=== PATIENT | female | born 2000 | race Caucasian/White ===

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

== ENCOUNTER 2019-04-19 20:47 | Inpatient (IN) | payer MEDICAID, OTHER ==
--- NOTE | 2019-04-19 21:07 | ER Document Report ---
ED General - General Chief Complaint: Overdose Stated Complaint: POSS OVERDOSE Time Seen by Provider: 04/19/19 21:06 Notes: 18-year-old female brought to the emergency department with a history of having taken 2 handful of her medications. Approximately 20 pills of a mixture of Saphris, Trileptal, Keppra, buspirone, Celexa, Seroquel l, and ibuprofen. She also took a bungee cord and tried to strangle herself. When asked when she tried to kill herself she states that she was "following the voices". She has a significant psychiatric history suicidal attempts, hallucinations, schizoaffective disorder, she also has a seizure disorder with petit mal seizures and grand mal tonic-clonic seizures. Apparently she has multiple superficial cuts on the left arm and a red jadiel around her neck from using a bungee cord as a ligature. TRAVEL OUTSIDE OF THE [place] IN LAST 30 DAYS: No - Related Data Allergies/Adverse Reactions: banana Allergy (Verified 04/19/19 21:01) albuterol [Albuterol] Adverse Reaction (Verified 09/09/11 08:26) AGGRESSIVE BEHAVIOR Home Medications: keppra, triliptal, saphris, buspar, sreaquel, ibuprofen, celexa Past Medical History - Social History Smoking Status: Never Smoker Frequency of alcohol use: None Drug Abuse: None Family History: Reviewed & Not Pertinent, Other - Depression, PTSD Patient has suicidal ideation: Yes Patient has homicidal ideation: No - Past Medical History Cardiac Medical History: Denies: Hx Heart Attack, Hx Hypertension Pulmonary Medical History: Denies: Hx Asthma Neurological Medical History: Denies: Hx Cerebrovascular Accident, Hx Seizures Renal/ Medical History: Denies: Hx Peritoneal Dialysis GI Medical History: Denies: Hx Hepatitis, Hx Hiatal Hernia, Hx Ulcer Psychiatric Medical History: Reports: Hx Anxiety, Hx Depression, Hx Post Traumatic Stress Disorder Infectious Medical History: Denies: Hx Hepatitis Past Surgical History: Denies: Hx Open Heart Surgery, Hx Pacemaker - Immunizations Immunizations up to date: Yes Review of Systems - Review of Systems Notes: Constitutional: Negative for fever. HENT: Negative for sore throat. Eyes: Negative for visual changes. Cardiovascular: Negative for chest pain. Respiratory: Negative for shortness of breath. Gastrointestinal: Negative for abdominal pain, vomiting or diarrhea. Genitourinary: Negative for dysuria. Musculoskeletal: Negative for back pain. Skin: + Multiple superficial cuts on the left arm Neurological: Negative for headaches, weakness or numbness. Psychiatric: + Auditory hallucinations, + suicidal ideation, 10 point ROS negative except as marked above and in HPI. Physical Exam - Vital signs Vitals: Resp Pulse Ox 22 H 97 04/19/19 20:56 04/19/19 20:56 - Notes Notes: PHYSICAL EXAMINATION: Physical Exam: General: Well-nourished well-developed 18-year-old female lying on a stretcher with her eyes closed HEENT: NC/AT, pupils equal round and reactive to light, MM moist,nares clear, oropharynx clear Neck: supple, no adenopathy, no masses. Lungs: clear, no wheezing, no rales no rhonchi CVS: Regular rate and rhythm no murmur gallop or rub Abdomen: Soft active nontender, no masses, no hepatosplenomegaly Ext: No edema clubbing or cyanosis. Neuro: Somnolent but arousable, moving all 4 extremities on command, cranial nerves intact. Skin: Multiple superficial lacerations on the left upper extremity. PSYCH: Auditory hallucinations, suicidal attempt, self-mutilation, depression Course - Re-evaluation Re-evalutation: 04/19/19 22:42 Poison control was contacted and recommends the patient be admitted to the hospital for 24-hour monitoring and evaluation of the overdose. Given the unknown quantity of multiple medications the risk for arrhythmia, QT prolongation and sedation will require close inpatient management. - Vital Signs Vital signs: Temp Pulse Resp BP Pulse Ox 97.4 F 115 H 13 106/61 96 04/19/19 21:18 04/19/19 21:01 04/19/19 23:01 04/19/19 23:01 04/19/19 23:01 - Laboratory Result Diagrams: 04/19/19 21:00 04/19/19 21:00 Laboratory results interpreted by me: 04/19/19 04/19/19 21:00 21:00 RDW 15.0 H Chloride 108 H Glucose 122 H Salicylates < 1.0 L Acetaminophen < 10 L - EKG Interpretation by Me Rate: Tachycardia - Rate of 114, no acute ST or T wave abnormalities noted. Critical Care Note - Critical Care Note Total time excluding time spent on procedures (mins): 60 - Critical care time spent obtaining history from patient or surrogate, discussions with consultants, development of treatment plan with patient or surrogate, evaluation of patient's response to treatment, examination of patient, ordering and performing treatments and interventions, ordering and review of laboratory studies, re- evaluation of patient's condition, ordering and review of radiographic studies and review of old charts Discharge - Discharge Clinical Impression: Drug ingestion, Self-inflicted injury, Suicide attempt, Seizure disorder Condition: Fair Disposition: ADMITTED INPATIENT Admitting Provider: Dhaval (Hospitalist) Unit Admitted: Telemetry
[2019-04-19 21:25] LABS: ABSOLUTE EOSINOPHILS # (AUTO) 0.2 10^3/uL (0.0-0.6); ABSOLUTE LYMPHOCYTES (AUTO) 2.5 10^3/uL (0.5-4.7); ABSOLUTE MONOCYTES (AUTO) 0.3 10^3/uL (0.1-1.4); ABSOLUTE NEUT (AUTO) 6.4 10^3/uL (1.7-8.2); BASOPHILS % (AUTO) 0.2 % (0-2); EOSINOPHILS % (AUTO) 1.8 % (0-6); HEMATOCRIT 38.8 % (36.0-47.0); LYMPHOCYTES % (AUTO) 26.8 % (13-45); MEAN CORPUSCULAR HEMOGLOBIN 28.5 pg (27.0-33.4); MEAN CORPUSCULAR HGB CONC 33.5 g/dL (32.0-36.0); MEAN CORPUSCULAR VOLUME 85 fl (80-97); MONOCYTES % (AUTO) 3.7 % (3-13); PLATELET COUNT 305 10^3/uL (150-450); RED BLOOD COUNT 4.55 10^6/uL (3.72-5.28); SEGMENTED NEUTROPHILS % (AUTO) 67.5 % (42-78); TOTAL CELLS COUNTED % (AUTO) 100 %; WHITE BLOOD COUNT 9.5 10^3/uL (4.0-10.5)
[2019-04-19 21:43] LABS: ALBUMIN 3.8 g/dL (3.5-5.0); ALKALINE PHOSPHATASE 125 U/L (38-126); ANION GAP 8 (5-19); ASPARTATE AMINO TRANSFERASE 19 U/L (14-36); BILIRUBIN,TOTAL 0.2 mg/dL (0.2-1.3); BLOOD UREA NITROGEN 11 mg/dL (7-20); CALCIUM 9.4 mg/dL (8.4-10.2); CARBON DIOXIDE 25 mmol/L (22-30); CHLORIDE 108 mmol/L (98-107); GLUCOSE 122 mg/dL (75-110); POTASSIUM 4.3 mmol/L (3.6-5.0); TOTAL PROTEIN 7.2 g/dL (6.3-8.2)
[2019-04-19 21:47] LABS: ACETAMINOPHEN < 10 ug/mL (10-30); ALCOHOL < 10 mg/dL (NONE DETECTED); SALICYLATE < 1.0 mg/dL (2.0-20.0)
[2019-04-19 23:01] LABS: APPEARANCE,URINE CLEAR; BILIRUBIN,URINE NEGATIVE (NEGATIVE); COLOR,URINE STRAW; GLUCOSE, URINE NEGATIVE (NEGATIVE); KETONES,URINE NEGATIVE (NEGATIVE); LEUKOCYTE ESTERASE,URINE NEGATIVE (NEGATIVE); NITRITE,URINE NEGATIVE (NEGATIVE); PROTEIN,URINE NEGATIVE (NEGATIVE); URINE SPECIFIC GRAVITY 1.009; UROBILINOGEN,URINE NEGATIVE mg/dL (<2.0)
[2019-04-19 23:19] LABS: URINE AMPHETAMINES SCREEN NEGATIVE; URINE BARBITURATES SCREEN NEGATIVE; URINE BENZODIAZEPINES SCREEN NEGATIVE; URINE COCAINE SCREEN NEGATIVE; URINE MARIJUANA (THC) SCREEN NEGATIVE; URINE METHADONE SCREEN NEGATIVE; URINE PHENCYCLIDINE SCREEN NEGATIVE
[2019-04-20] MEDS ORDERED: MAG HYDROX/AL HYDROX/SIMETH SUSP 30 ML UDCUP PO PRN (00:28)
[2019-04-20] MEDS ORDERED: MAGNESIUM HYDROXIDE SUSP 30 ML UDCUP PO PRN (00:28)
[2019-04-20] MEDS ORDERED: ACETAMINOPHEN 325 MG TABLET PO PRN (00:28)
--- NOTE | 2019-04-20 04:35 | PDOC H&P ---
History of Present Illness Admission Date/PCP: 04/20/19 00:11 INDRA SMALL MD Patient complains of: Overdose History of Present Illness: DORON JOSEPH is a 18 year old female whose history is obtained by the record as she is uncooperative. Patient reportedly took 2 handfuls of medications which may have include Saphris, Trileptal, Keppra, BuSpar, Celexa, Seroquel and ibuprofen. In addition patient has attempted hanging with with a bungee cord and ligation bruising is apparent on the neck laterally. She has several superficial lacerations to her left forearm. She reports following the directions of voices in her head. She does have a history of suicidal attempts, hallucinations, schizoaffective and seizure disorder and morbid obesity. Emergency room provider has initiated IVC papers and contacted poison control recommending 24 hours of cardiac monitoring of QT interval and follow-up LFTs. Past Medical History Cardiac Medical History: Denies: Myocardial Infarction, Hypertension Pulmonary Medical History: Denies: Asthma Neurological Medical History: Denies: Seizures Endocrine Medical History: Reports: Obesity GI Medical History: Denies: Hepatitis, Hiatal Hernia Psychiatric Medical History: Reports: Depression, Post Traumatic Stress Disorder Hematology: Denies: Anemia, Sickle Cell Disease Past Surgical History Past Surgical History: Denies: Amputation, Pacemaker Social History Information Source: [facility], LAT[facility] Records Smoking Status: Never Smoker - Advance Directive Resuscitation Status: Full Code Family History Family History: Other - Depression, PTSD Parental Family History Reviewed: No - Unobtainable Children Family History Reviewed: No - Unobtainable Sibling(s) Family History Reviewed.: No - Unobtainable Medication/Allergy Home Medications: Divalproex Sodium [Depakote] 125 mg PO DAILY 05/13/16 Oxcarbazepine [Trileptal] 600 mg PO BID 05/13/16 Prazosin HCl [Minipress] 2 mg PO QHS 05/13/16 Allergies/Adverse Reactions: banana Allergy (Verified 04/19/19 21:01) albuterol [Albuterol] Adverse Reaction (Verified 09/09/11 08:26) AGGRESSIVE BEHAVIOR Review of Systems ROS unobtainable: Due to mental status Physical Exam Vital Signs: Temp Pulse Resp BP Pulse Ox 97.6 F 115 H 15 101/61 96 04/20/19 00:31 04/19/19 21:01 04/20/19 00:01 04/20/19 00:01 04/20/19 00:01 Intake & Output 04/18/19 04/19/19 04/20/19 11:59 11:59 11:59 Weight 106.594 kg General appearance: PRESENT: disheveled, morbidly obese. ABSENT: cooperative Head exam: PRESENT: atraumatic, normocephalic Head Image: 1 - Abrasion, ecchymosis from ligature Eye exam: PRESENT: conjunctiva pink, EOMI, PERRLA. ABSENT: scleral icterus Ear exam: PRESENT: normal external ear exam Mouth exam: PRESENT: moist, tongue midline Neck exam: ABSENT: carotid bruit, JVD, lymphadenopathy, thyromegaly Respiratory exam: PRESENT: clear to auscultation [place]. ABSENT: rales, rhonchi, wheezes Cardiovascular exam: PRESENT: RRR. ABSENT: diastolic murmur, rubs, systolic murmur Pulses: PRESENT: normal dorsalis pedis pul Vascular exam: PRESENT: normal capillary refill GI/Abdominal exam: PRESENT: normal bowel sounds, soft. ABSENT: distended, guarding, mass, organolmegaly, rebound, tenderness Rectal exam: PRESENT: deferred Extremities exam: PRESENT: full ROM. ABSENT: calf tenderness, clubbing, pedal edema Neurological exam: PRESENT: alert, awake, oriented to person, oriented to place, oriented to time, oriented to situation, CN II-XII grossly intact. ABSENT: motor sensory deficit Psychiatric exam: PRESENT: flat affect, unusual affect Skin exam: PRESENT: other - Superficial laceration of left forearm Results Laboratory Results: 04/19/19 21:00 04/19/19 21:00 04/19/19 04/19/19 04/19/19 21:00 21:00 21:00 WBC 9.5 RBC 4.55 Hgb 13.0 Hct 38.8 MCV 85 MCH 28.5 MCHC 33.5 RDW 15.0 H Plt Count 305 Seg Neutrophils % 67.5 Sodium 141.2 Potassium 4.3 Chloride 108 H Carbon Dioxide 25 Anion Gap 8 BUN 11 Creatinine 0.64 Est GFR ( Amer) > 60 Glucose 122 H Calcium 9.4 Magnesium 2.1 Total Bilirubin 0.2 AST 19 Alkaline Phosphatase 125 Total Protein 7.2 Albumin 3.8 TSH Urine Color Urine Appearance Urine pH Ur Specific [place] Urine Protein Urine Glucose (UA) Urine Ketones Urine Blood Urine Nitrite Ur Leukocyte Esterase Urine WBC (Auto) Urine RBC (Auto) 04/19/19 04/19/19 21:00 22:45 WBC RBC Hgb Hct MCV MCH MCHC RDW Plt Count Seg Neutrophils % Sodium Potassium Chloride Carbon Dioxide Anion Gap BUN Creatinine Est GFR ( Amer) Glucose Calcium Magnesium Total Bilirubin AST Alkaline Phosphatase Total Protein Albumin TSH 1.64 Urine Color STRAW Urine Appearance CLEAR Urine pH 6.0 Ur Specific [place] 1.009 Urine Protein NEGATIVE Urine Glucose (UA) NEGATIVE Urine Ketones NEGATIVE Urine Blood NEGATIVE Urine Nitrite NEGATIVE Ur Leukocyte Esterase NEGATIVE Urine WBC (Auto) 1 Urine RBC (Auto) 0 Assessment and Plan - Diagnosis (1) Drug ingestion Is this a current diagnosis for this admission?: Yes Plan: Intentional, telemetry monitoring of QT interval, follow-up LFTs and mental health consult (2) Seizure disorder Is this a current diagnosis for this admission?: Yes Plan: IV Ativan as needed (3) Self-inflicted injury Is this a current diagnosis for this admission?: Yes Plan: Follow-up mental health consult and suicide precautions. (4) Suicide attempt Is this a current diagnosis for this admission?: Yes Plan: Suicide precautions and IVC with mental health follow-up - Time Time Spent with patient: 25-34 minutes - Inpatient Certification Medical Necessity: Need Close Monitoring Due to Risk of Patient Decompensation
[2019-04-20] MEDS: HEPARIN SOD (PORCINE) 5,000 UNIT/ML 1 ML VIAL SUBCUT SCH ×3 (05:49→21:02)
[2019-04-20 06:39] LABS: ALBUMIN 4.1 g/dL (3.5-5.0); ALKALINE PHOSPHATASE 126 U/L (38-126); ANION GAP 10 (5-19); ASPARTATE AMINO TRANSFERASE 22 U/L (14-36); BILIRUBIN,DIRECT 0.3 mg/dL (0.0-0.4); BILIRUBIN,TOTAL 0.4 mg/dL (0.2-1.3); BLOOD UREA NITROGEN 11 mg/dL (7-20); CALCIUM 9.3 mg/dL (8.4-10.2); CARBON DIOXIDE 27 mmol/L (22-30); CHLORIDE 109 mmol/L (98-107); GLUCOSE 96 mg/dL (75-110); POTASSIUM 4.3 mmol/L (3.6-5.0); TOTAL PROTEIN 8.1 g/dL (6.3-8.2)
[2019-04-20] MEDS: DOCUSATE SODIUM 100 MG CAPSULE PO SCH ×2 (09:36→19:39)
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
--- NOTE | 2019-04-20 14:54 | EKG REPORT ---
SEVERITY:- OTHERWISE NORMAL ECG - SINUS TACHYCARDIA : Confirmed by: Carito Boswell MD 20-Apr-2019 14:52:41
--- NOTE | 2019-04-20 14:54 | EKG REPORT ---
SEVERITY:- NORMAL ECG - SINUS RHYTHM : Confirmed by: Carito Boswell MD 20-Apr-2019 14:52:38
[2019-04-21] MEDS ORDERED: LEVETIRACETAM 1000 MG/NACL-ISO 1,000 MG/100 ML RTUPB IV ONE ×2 (03:27→04:00)
[2019-04-21] MEDS: HEPARIN SOD (PORCINE) 5,000 UNIT/ML 1 ML VIAL SUBCUT SCH ×3 (05:01→21:29)
[2019-04-21] MEDS: DIVALPROEX SODIUM 500 MG TAB.SR.24H PO SCH ×2 (09:42→17:55)
[2019-04-21] MEDS: DOCUSATE SODIUM 100 MG CAPSULE PO SCH ×2 (09:42→17:55)
--- NOTE | 2019-04-21 12:41 | PSYCHOLOGICAL NOTE ---
Psych Note - Psych Note Date seen by psych provider: 04/21/19 Psych Note: Reason for Consult: overdose Chart review conducted: there have been no new mental health concerns noted. Patient was noted to experience a seizure this morning. Medication recommendations per [facility]'s contracted psychiatrist Dr. Vishal QUIGLEY are as follows Depakote 500 mg twice daily Impression\plan: Patient is recommended for continued IVC. Patient attempted to kill herself last night by both intentional overdose and attempted strangulation. Patient has return brennan i.e. bruising on her neck. Patient discloses a history of cutting as a maladaptive coping skill and confirms the superficial cuts on the top of her forearm are from coping not an attempt. There is concern the patient has been off all medications for 2 weeks to include her medication for epilepsy. Patient reports frequent auditory hallucinations. Her reports are congruent with known manifestations. Medication recommendations have been provided to assist in stabilization. Patient is not medically cleared at this point. Placement efforts cannot begin until she no longer needs medical assistance/interventions to maintain stability. Dr. Sousa was consulted to care management of this patient; attending physicians in agreement with recommendations and disposition.
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
--- NOTE | 2019-04-21 21:26 | EKG REPORT ---
SEVERITY:- NORMAL ECG - SINUS RHYTHM : Confirmed by: Carito Boswell MD 21-Apr-2019 21:24:59
[2019-04-21] MEDS ORDERED: LEVETIRACETAM 500 MG TABLET PO SCH (22:00)
[2019-04-22] MEDS: HEPARIN SOD (PORCINE) 5,000 UNIT/ML 1 ML VIAL SUBCUT SCH (05:06)
[2019-04-22] MEDS ORDERED: LEVETIRACETAM 500 MG TABLET PO SCH (08:00)
--- NOTE | 2019-04-22 08:33 | PSYCHOLOGICAL NOTE ---
Psych Note - Psych Note Date seen by psych provider: 04/22/19 Time seen by psych provider: 08:50 Psych Note: Chart review conducted: Clinician notes patient's attending physician documented last night patient is now medically cleared for psychiatric disposition. Clinician fax patient's information to [facility], and [facility] at 7:49 AM Clinician received phone call at 8:15 AM from [facility] and spoke with RN, Marta, whom formally accepted patient. Accepting provider is Luna Rossi. [facility] request transportation to occur after medication past this morning at 10 AM. Clinician will coordinate with [facility] for transportation. Check in conducted with patient: Clinician met with patient to discuss acceptance to [facility] and provide pamphlet for their facility. Clinician was able to answer all patient's questions satisfactorily. Clinician notes conversation went significantly better than previous day with patient identifying that she feels this facility will meet her needs. Impression/Plan: Patient is recommended to continue under IVC. Patient has been accepted to [facility] and transportation has been requested. Dr. Sousa was consulted to care management of this patient; any physicians in agreement with recommendations and disposition.
[2019-04-22 08:56] VITALS: BP 128/77
[2019-04-22] MEDS: DIVALPROEX SODIUM 500 MG TAB.SR.24H PO SCH (09:59)
[2019-04-22] MEDS: DOCUSATE SODIUM 100 MG CAPSULE PO SCH (09:59)
--- NOTE | 2019-04-22 13:44 | PDOC DISCHARGE SUMMARY ---
Impression - Admit/DC Date/PCP Admission Date/Primary Care Provider: 04/20/19 00:11 INDRA SMALL MD Discharge Date: 04/22/19 - Discharge Diagnosis (1) Seizure disorder Is this a current diagnosis for this admission?: Yes (2) Suicide attempt Is this a current diagnosis for this admission?: Yes - Additional Information Resuscitation Status: Full Code Discharge Diet: Regular Discharge Activity: Supervised Activity Referrals: PSYCH,HOSPITAL [Other] Home Medications: Oxcarbazepine [Trileptal] 600 mg PO QID 05/13/16 Buspirone HCl [Buspar 10 mg Tablet] 10 mg PO TID 04/20/19 Citalopram Hydrobromide [Celexa] 40 mg PO DAILY 04/20/19 Levetiracetam [Keppra 500 mg Tablet] 1,000 mg PO QHS 04/20/19 Levetiracetam [Keppra 500 mg Tablet] 500 mg PO QAM 04/20/19 Quetiapine Fumarate [Seroquel 100 mg Tablet] 100 mg PO QHS 04/20/19 History of Present Illiness History of Present Illness: DORON JOSEPH is a 18 year old female whose history is obtained by the record as she is uncooperative. Patient reportedly took 2 handfuls of medications which may have include Saphris, Trileptal, Keppra, BuSpar, Celexa, Seroquel and ibuprofen. In addition patient has attempted hanging with with a bungee cord and ligation bruising is apparent on the neck laterally. She has several superficial lacerations to her left forearm. She reports following the directions of voices in her head. She does have a history of suicidal attempts, hallucinations, schizoaffective and seizure disorder and morbid obesity. Emergency room provider has initiated IVC papers and contacted poison control recommending 24 hours of cardiac monitoring of QT interval and follow-up LFTs. Hospital Course Hospital Course: She was monitored on telemetry and showed no QTC prolongation or QRS interval widening. She showed no evidence of organ dysfunction. Her medications were held because it was not entirely certain which medication she had actually overdosed on, and she did have one episode that was called a seizure yesterday morning but she was put back on Keppra and has not had any subsequent episodes. Her Trileptal has been switched out psychiatry's recommendation in favor of Depakote. She was medically cleared and psychiatry has found placement for her. She is being transferred to inpatient psychiatry today. Physical Exam Vital Signs: Temp Pulse Resp BP Pulse Ox 97.9 F 88 16 128/77 H 100 04/22/19 07:53 04/22/19 07:53 04/22/19 07:53 04/22/19 07:53 04/22/19 07:53 Intake & Output 04/21/19 04/22/19 04/23/19 06:59 06:59 06:59 Intake Total 454 1276 Balance 454 1276 Weight 112.7 kg 110.5 kg General appearance: PRESENT: no acute distress, cooperative, disheveled, morbidly obese Neck exam: PRESENT: other - She has bruising from ligature brennan around her neck Respiratory exam: PRESENT: clear to auscultation jersey, symmetrical, unlabored. ABSENT: accessory muscle use, crackles, prolonged expiratory phas, rales, retraction, rhonchi, tachypnea, wheezes Cardiovascular exam: PRESENT: +S1, +S2 Pulses: PRESENT: normal carotid pulses Vascular exam: PRESENT: normal capillary refill GI/Abdominal exam: PRESENT: normal bowel sounds, soft. ABSENT: distended, guarding, rebound, tenderness Extremities exam: ABSENT: clubbing, pedal edema Musculoskeletal exam: PRESENT: normal inspection. ABSENT: deformity Neurological exam: PRESENT: alert, awake, oriented to person, oriented to place, oriented to time Psychiatric exam: PRESENT: agitated, anxious Skin exam: PRESENT: dry, warm Results Laboratory Results: WBC 9.5 10^3/uL (4.0-10.5) 04/19/19 21:00 RBC 4.55 10^6/uL (3.72-5.28) 04/19/19 21:00 Hgb 13.0 g/dL (12.0-15.5) 04/19/19 21:00 Hct 38.8 % (36.0-47.0) 04/19/19 21:00 MCV 85 fl (80-97) 04/19/19 21:00 MCH 28.5 pg (27.0-33.4) 04/19/19 21:00 MCHC 33.5 g/dL (32.0-36.0) 04/19/19 21:00 RDW 15.0 % (11.5-14.0) H 04/19/19 21:00 Plt Count 305 10^3/uL (150-450) 04/19/19 21:00 Lymph % (Auto) 26.8 % (13-45) 04/19/19 21:00 [place] % (Auto) 3.7 % (3-13) 04/19/19 21:00 Eos % (Auto) 1.8 % (0-6) 04/19/19 21:00 Baso % (Auto) 0.2 % (0-2) 04/19/19 21:00 Absolute Neuts (auto) 6.4 10^3/uL (1.7-8.2) 04/19/19 21:00 Absolute Lymphs (auto) 2.5 10^3/uL (0.5-4.7) 04/19/19 21:00 Absolute Monos (auto) 0.3 10^3/uL (0.1-1.4) 04/19/19 21:00 Absolute Eos (auto) 0.2 10^3/uL (0.0-0.6) 04/19/19 21:00 Absolute Basos (auto) 0.0 10^3/uL (0.0-0.2) 04/19/19 21:00 Seg Neutrophils % 67.5 % (42-78) 04/19/19 21:00 Sodium 146.0 mmol/L (137-145) H 04/20/19 06:01 Potassium 4.3 mmol/L (3.6-5.0) 04/20/19 06:01 Chloride 109 mmol/L (98-107) H 04/20/19 06:01 Carbon Dioxide 27 mmol/L (22-30) 04/20/19 06:01 Anion Gap 10 (5-19) 04/20/19 06:01 BUN 11 mg/dL (7-20) 04/20/19 06:01 Creatinine 0.57 mg/dL (0.52-1.25) 04/20/19 06:01 Est GFR ( Amer) > 60 (>60) 04/20/19 06:01 Est GFR (MDRD) Non-Af > 60 (>60) 04/20/19 06:01 Glucose 96 mg/dL (75-110) 04/20/19 06:01 Calcium 9.3 mg/dL (8.4-10.2) 04/20/19 06:01 Magnesium 2.1 mg/dL (1.6-2.3) 04/19/19 21:00 Total Bilirubin 0.4 mg/dL (0.2-1.3) 04/20/19 06:01 Direct Bilirubin 0.3 mg/dL (0.0-0.4) 04/20/19 06:01 Neonat Total Bilirubin Not Reportable 04/20/19 06:01 Neonat Direct Bilirubin Not Reportable 04/20/19 06:01 Neonat Indirect Bili Not Reportable 04/20/19 06:01 AST 22 U/L (14-36) 04/20/19 06:01 ALT 17 U/L (<35) 04/20/19 06:01 Alkaline Phosphatase 126 U/L (38-126) 04/20/19 06:01 Total Protein 8.1 g/dL (6.3-8.2) 04/20/19 06:01 Albumin 4.1 g/dL (3.5-5.0) 04/20/19 06:01 TSH 1.64 uIU/mL (0.47-4.68) 04/19/19 21:00 Urine Color STRAW 04/19/19 22:45 Urine Appearance CLEAR 04/19/19 22:45 Urine pH 6.0 (5.0-9.0) 04/19/19 22:45 Ur Specific [place] 1.009 04/19/19 22:45 Urine Protein NEGATIVE mg/dL (NEGATIVE) 04/19/19 22:45 Urine Glucose (UA) NEGATIVE mg/dL (NEGATIVE) 04/19/19 22:45 Urine Ketones NEGATIVE mg/dL (NEGATIVE) 04/19/19 22:45 Urine Blood NEGATIVE (NEGATIVE) 04/19/19 22:45 Urine Nitrite NEGATIVE (NEGATIVE) 04/19/19 22:45 Urine Bilirubin NEGATIVE (NEGATIVE) 04/19/19 22:45 Urine Urobilinogen NEGATIVE mg/dL (<2.0) 04/19/19 22:45 Ur Leukocyte Esterase NEGATIVE (NEGATIVE) 04/19/19 22:45 Urine WBC (Auto) 1 /HPF 04/19/19 22:45 Urine RBC (Auto) 0 /HPF 04/19/19 22:45 Squamous Epi Cells Auto 3 /HPF 04/19/19 22:45 Urine Ascorbic Acid NEGATIVE (NEGATIVE) 04/19/19 22:45 Salicylates < 1.0 mg/dL (2.0-20.0) L 04/19/19 21:00 Urine Opiates Screen NEGATIVE 04/19/19 22:45 Urine Methadone Screen NEGATIVE 04/19/19 22:45 Acetaminophen < 10 ug/mL (10-30) L 04/19/19 21:00 Ur Barbiturates Screen NEGATIVE 04/19/19 22:45 Ur Phencyclidine Scrn NEGATIVE 04/19/19 22:45 Ur Amphetamines Screen NEGATIVE 04/19/19 22:45 U Benzodiazepines Scrn NEGATIVE 04/19/19 22:45 Urine Cocaine Screen NEGATIVE 04/19/19 22:45 U Marijuana (THC) Screen NEGATIVE 04/19/19 22:45 Serum Alcohol < 10 mg/dL (NONE DETECTED) 04/19/19 21:00 Plan Time Spent: Greater than 30 Minutes Stroke Is this a Stroke Patient?: No Acute Heart Failure - Is this a Heart Failure Patient?: No
== END 2019-04-22 11:15 | DRG 918 ==
LOC: ER 20:47 → EH 04-20 00:11 → 4N 04-20 14:50
PROVIDERS: ADMIT Internal Medicine; ATTEND Internal Medicine
DX: T42.1X2A Poisoning by iminostilbenes, intentional self-harm, initial encounter (principal); Z68.42 Body mass index [BMI] 45.0-49.9, adult; T43.592A Poisoning by other antipsychotics and neuroleptics, intentional self-harm, initial encounter; T43.222A Poisoning by selective serotonin reuptake inhibitors, intentional self-harm, initial encounter; S51.812A Laceration without foreign body of left forearm, initial encounter; S10.91XA Abrasion of unspecified part of neck, initial encounter; R41.82 Altered mental status, unspecified; I45.81 Long QT syndrome; F32.9 Major depressive disorder, single episode, unspecified; F43.10 Post-traumatic stress disorder, unspecified; G40.909 Epilepsy, unspecified, not intractable, without status epilepticus; E66.01 Morbid (severe) obesity due to excess calories; X83.8XXA Intentional self-harm by other specified means, initial encounter; Y92.091 Bathroom in other non-institutional residence as the place of occurrence of the external cause; Y93.89 Activity, other specified
CPT/HCPCS: 36415; 80053; 80307; 81001; 83735; 84443; 85025; 93005; 93010; 99291; J1644; J1953

== ENCOUNTER 2019-04-23 23:49 | Emergency (ER) | payer MEDICAID ==
--- NOTE | 2019-04-24 00:06 | ER Document Report ---
ED Medical Screen (RME) - General Stated Complaint: POSSIBLE SEIZURE/FALL Time Seen by Provider: 04/24/19 00:05 Primary Care Provider: INDRA SMALL MD [Primary Care Provider] - Follow up as needed Notes: 18-year-old female with history of epilepsy presents for evaluation after seizure. Patient states she is on Keppra, Trileptal, and was recently started on gabapentin for seizures. Patient states she had a seizure yesterday as well. Patient was sent over from [place] for evaluation. Patient denies any pain anywhere or nausea/vomiting. Patient is nontoxic, well-appearing. Patient ambulates without difficulty. I have greeted and performed a rapid initial assessment of this patient. A comprehensive ED assessment and evaluation of the patient, analysis of test results and completion of the medical decision making process with be conducted by additional ED providers. TRAVEL OUTSIDE OF THE [place] IN LAST 30 DAYS: No - Related Data Allergies/Adverse Reactions: banana Allergy (Verified 04/23/19 23:58) Past Medical History - Past Medical History Cardiac Medical History: Denies: Hx Heart Attack, Hx Hypertension Pulmonary Medical History: Denies: Hx Asthma Neurological Medical History: Denies: Hx Cerebrovascular Accident, Hx Seizures Renal/ Medical History: Denies: Hx Peritoneal Dialysis GI Medical History: Denies: Hx Hepatitis, Hx Hiatal Hernia, Hx Ulcer Psychiatric Medical History: Reports: Hx Anxiety, Hx Depression, Hx Post Traumatic Stress Disorder Infectious Medical History: Denies: Hx Hepatitis Past Surgical History: Denies: Hx Open Heart Surgery, Hx Pacemaker - Immunizations Immunizations up to date: Yes Physical Exam - Vital signs Vitals: Temp Pulse Resp BP Pulse Ox 98.6 F 130 H 16 138/98 H 97 04/23/19 23:57 04/23/19 23:57 04/23/19 23:57 04/23/19 23:57 04/23/19 23:57 Course - Vital Signs Vital signs: Temp Pulse Resp BP Pulse Ox 98.6 F 130 H 16 138/98 H 97 04/23/19 23:57 04/23/19 23:57 04/23/19 23:57 04/23/19 23:57 04/23/19 23:57 Doctor's Discharge - Discharge Referrals: INDRA SMALL MD [Primary Care Provider] - Follow up as needed
[2019-04-24 00:31] LABS: ABSOLUTE BASOPHILS # (AUTO) 0.1 10^3/uL (0.0-0.2); ABSOLUTE EOSINOPHILS # (AUTO) 0.2 10^3/uL (0.0-0.6); ABSOLUTE LYMPHOCYTES (AUTO) 3.4 10^3/uL (0.5-4.7); ABSOLUTE MONOCYTES (AUTO) 0.5 10^3/uL (0.1-1.4); BASOPHILS % (AUTO) 0.7 % (0-2); EOSINOPHILS % (AUTO) 1.5 % (0-6); HEMATOCRIT 39.8 % (36.0-47.0); HEMOGLOBIN 13.5 g/dL (12.0-15.5); LYMPHOCYTES % (AUTO) 27.9 % (13-45); MEAN CORPUSCULAR HEMOGLOBIN 28.4 pg (27.0-33.4); MEAN CORPUSCULAR HGB CONC 33.8 g/dL (32.0-36.0); MEAN CORPUSCULAR VOLUME 84 fl (80-97); MONOCYTES % (AUTO) 4.2 % (3-13); PLATELET COUNT 338 10^3/uL (150-450); RED BLOOD COUNT 4.73 10^6/uL (3.72-5.28); RED CELL DISTRIBUTION WIDTH 14.8 % (11.5-14.0); SEGMENTED NEUTROPHILS % (AUTO) 65.7 % (42-78); TOTAL CELLS COUNTED % (AUTO) 100 %; WHITE BLOOD COUNT 12.1 10^3/uL (4.0-10.5)
[2019-04-24 00:44] LABS: APPEARANCE,URINE CLEAR; BILIRUBIN,URINE NEGATIVE (NEGATIVE); COLOR,URINE YELLOW; GLUCOSE, URINE NEGATIVE (NEGATIVE); KETONES,URINE 20 mg/dL (NEGATIVE); PROTEIN,URINE NEGATIVE (NEGATIVE); URINE SPECIFIC GRAVITY 1.023; UROBILINOGEN,URINE NEGATIVE mg/dL (<2.0)
[2019-04-24 00:51] LABS: ALBUMIN 4.5 g/dL (3.5-5.0); ALKALINE PHOSPHATASE 161 U/L (38-126); ANION GAP 11 (5-19); ASPARTATE AMINO TRANSFERASE 18 U/L (14-36); BILIRUBIN,TOTAL 0.4 mg/dL (0.2-1.3); BLOOD UREA NITROGEN 13 mg/dL (7-20); CALCIUM 9.4 mg/dL (8.4-10.2); CARBON DIOXIDE 26 mmol/L (22-30); CHLORIDE 106 mmol/L (98-107); GLUCOSE 93 mg/dL (75-110); POTASSIUM 4.4 mmol/L (3.6-5.0); TOTAL PROTEIN 8.6 g/dL (6.3-8.2)
[2019-04-24 01:34] LABS: URINE AMPHETAMINES SCREEN NEGATIVE; URINE BARBITURATES SCREEN NEGATIVE; URINE BENZODIAZEPINES SCREEN NEGATIVE; URINE COCAINE SCREEN NEGATIVE; URINE MARIJUANA (THC) SCREEN NEGATIVE; URINE METHADONE SCREEN NEGATIVE; URINE PHENCYCLIDINE SCREEN NEGATIVE
[2019-04-24] MEDS ORDERED: NORMAL SALINE 1000 ML 1,000 ML IV ONE ×2 (02:32→05:27)
[2019-04-24] MEDS ORDERED: LEVETIRACETAM 1000 MG/NACL-ISO 1,000 MG/100 ML RTUPB IV ONE (02:33)
[2019-04-24] MEDS ORDERED: QUETIAPINE FUMARATE 100 MG TABLET PO ONE (02:50)
[2019-04-24] MEDS ORDERED: OXCARBAZEPINE 150 MG TABLET PO ONE (02:51)
--- NOTE | 2019-04-24 03:59 | RADIOLOGY REPORT (SQ) ---
CT head without contrast on 04/24/2019 at 3:18 AM CLINICAL INDICATION: Multiple seizures TECHNIQUE: Multiple axial images are obtained throughout the head without the administration of contrast. This exam was performed according to our departmental dose-optimization program, which includes automated exposure control, adjustment of the mA and/or kV according to patient size and/or use of iterative reconstruction technique. Total DLP is 1070.38 mGy*cm. COMPARISON: 12/17/2011 FINDINGS: There is no hydrocephalus. 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 There is no CT evidence of acute infarct. There is no hemorrhage. There are no abnormal extra-axial fluid collections. There is no mass, mass effect or midline shift. No bony abnormality is noted. Large mucous retention cyst is noted in the right maxillary sinus. IMPRESSION: No acute intracranial abnormality.
--- NOTE | 2019-04-24 06:16 | RADIOLOGY REPORT (SQ) ---
Chest one view on 04/24/2019 at 5:37 AM CLINICAL INDICATION: Tachycardia, seizures COMPARISON: None FINDINGS: The lungs are clear. Cardiac, hilar and mediastinal contours are within normal limits. Pulmonary vascularity is within normal limits. No bony abnormality is noted. IMPRESSION: No active disease.
--- NOTE | 2019-04-24 06:24 | ER Document Report ---
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 Patient was admitted to [place] yesterday on IVC orders for a suicide attempt with a cocktail of pills and a "bungee cord around my neck". Patient states that she does not remember the pills she took and she "hallucinates a lot". Patient states that she had seizures yesterday, this morning and later this evening. Patient reports that she "had an accident" during last seizure episode and [facility] "finally allowed her to shower" before she came to the ED. Patient states that she usually takes Keppra and Trileptal for her seizures and "it works well at home". Patient states that she does not know what [facility] has been giving her but she is "pretty sure they haven't given seizure medications". Patient says that [facility] will discharge her after she leaves the emergency department. Patient says that her IVC orders are dropped and "[facility] has made a plan to see a psychiatrist for a [facility] appointment and [employer] with A". Patient says that her father is able to take her home. Patient reports a "small headache" and denies any history of internal head bleeding. Patient denies suicidal ideation, homicidal ideation, and hallucinations right now. TRAVEL OUTSIDE OF THE [place] IN LAST 30 DAYS: No - Related Data Allergies/Adverse Reactions: banana Allergy (Verified 04/23/19 23:58) Past Medical History - General Information source: Patient - Social History Smoking Status: Never Smoker Cigarette use (# per day): No Chew tobacco use (# tins/day): No Lives with: Family Family History: Other - Depression, PTSD Patient has suicidal ideation: No Patient has homicidal ideation: No Psychiatric Medical History: Reports: Hx Anxiety, Hx Depression, Hx Post Traumatic Stress Disorder Surgical Hx: Negative - Immunizations Immunizations up to date: Yes Review of Systems - Review of Systems Constitutional: No symptoms reported EENT: denies: Nose discharge Cardiovascular: denies: Dizziness Respiratory: No symptoms reported Gastrointestinal: No symptoms reported Genitourinary: No symptoms reported Female Genitourinary: No symptoms reported Musculoskeletal: No symptoms reported Skin: No symptoms reported Hematologic/Lymphatic: No symptoms reported Neurological/Psychological: See HPI, Seizure, Headaches. denies: Hallucinations - Not at the moment, Homicidal ideation, Suicidal ideation - Not at the moment -: Yes All other systems reviewed and negative Physical Exam - Vital signs Vitals: Temp Pulse Resp BP Pulse Ox 98.6 F 130 H 16 138/98 H 97 04/23/19 23:57 04/23/19 23:57 04/23/19 23:57 04/23/19 23:57 04/23/19 23:57 - Notes Notes: Physical Exam: General: Alert, appears well. Obese. HEENT: Normocephalic. Atraumatic. PERRL. Extraocular movements intact. Oropharynx clear. Neck: Supple. Non-tender. Respiratory: No respiratory distress. Clear and equal breath sounds bilaterally. Cardiovascular: Regular rate and rhythm. Abdominal: Normal Inspection. Non-tender. No distension. Normal Bowel Sounds. Back: No gross abnormalities. Extremities: Moves all four extremities. Upper extremities: Normal inspection. Normal ROM. Lower extremities: Normal inspection. No edema. Normal ROM. Neurological: Normal cognition. AAOx4. Normal speech. Psychological: Normal affect. Normal Mood. Skin: Warm. Dry. Normal color. Course - Re-evaluation Re-evalutation: 04/24/19 05:32 Patient still has a resting sinus tachycardia of 110 120 patient was asleep when she arouses her heart rate goes up to 124. Denies any chest pain shortness of breath cough patient has had 3 seizures in the past 24hours chest x-ray is ordered to determine if there is any evidence of aspiration. 04/24/19 06:20 It has been most difficult to determine what anticonvulsant medication is that patient currently is taking. Reviewing the chart it showed that it 1 time she was taking Trileptal 600 mg 4 times daily Keppra 500 mg every morning and 1000 mg every afternoon. And gabapentin was also 1 of her medications. Once in the hospital per my understanding of the chart patient was switched to Depakote in favor gabapentin for anticonvulsant medication control. No once patient was in the [place] inpatient [facility] I am not sure what anticonvulsant medication schedule of drugs she was getting. I also wonder if patient was having pseudoseizures versus epileptic seizures while over at [place] facility. Patient continues to have a sinus tachycardia at this time. This may be residual changes from her overdose of polysubstances 3 days ago. Patient's d- dimer is normal she has no calf tenderness on exam and patient is receiving 2 L IV fluids to determine if dehydration has any cause today with her sinus tachycardia. - Vital Signs Vital signs: Temp Pulse Resp BP Pulse Ox 98.6 F 130 H 18 158/90 H 96 04/23/19 23:57 04/23/19 23:57 04/24/19 04:02 04/24/19 04:02 04/24/19 04:02 - Laboratory Result Diagrams: 04/24/19 00:15 04/24/19 00:15 Laboratory results interpreted by me: 04/24/19 04/24/19 04/24/19 00:15 00:15 00:15 WBC 12.1 H RDW 14.8 H Alkaline Phosphatase 161 H Total Protein 8.6 H Urine Ketones 20 H Leukocyte Esterase Rfl TRACE H - Diagnostic Test Radiology reviewed: Image reviewed, Reports reviewed Radiology results interpreted by me: 04/24/19 05:39 CT scan of head shows cavum septum pellucidum which is a normal variant and not a cause of seizure activity. Otherwise no acute process. 04/24/19 06:16 Chest x-ray read by me does not disclose any acute process. No infiltrate noted borderline cardiomegaly. - EKG Interpretation by Me Additional EKG results interpreted by me: 04/24/19 05:34 Lead EKG shows sinus tachycardia rate of [address]-T wave changes. Discharge - Discharge Clinical Impression: Seizure disorder, Sinus tachycardia, Depression, Posttraumatic stress disorder, Suicide attempt, Drug ingestion Condition: Fair Disposition: PSYCH HOSP/UNIT Referrals: INDRA SMALL MD [Primary Care Provider] - Follow up as needed I personally performed the services described in the documentation, reviewed and edited the documentation which was dictated to the scribe in my presence, and it accurately records my words and actions.
--- NOTE | 2019-04-24 07:24 | EKG REPORT ---
SEVERITY:- BORDERLINE ECG - SINUS TACHYCARDIA NONSPECIFIC ST-T CHANGES- INFERIOR LEADS : Confirmed by: Gabriel Hyman MD 24-Apr-2019 07:23:45
--- NOTE | 2019-04-24 10:08 | PSYCHOLOGICAL NOTE ---
Psych Note - Psych Note Date seen by psych provider: 04/24/19 Time seen by psych provider: 07:55 Psych Note: Patient is a 18-year-old female who presents to ED via EMS for a "suicidal drug overdose 3 days ago, and was in [facility]." Patient was last evaluated by behavioral h ealt on 04/22/2019 for a suicide attempt and was placed at [facility]. Patient states she has epilepsy. Patient expressed frustration and anger that a behavioral health consult was put in given the suicide attempt was 3 days ago and she completed treatment at [facility]. Patient states she is here for medical not mental health. Has follow-up appointment with [facility] on 04/28/2019 and has daily telemental health services set up through [facility] until her appointment at [facility]. Patient states she only experiences auditory and visual hallucinations post seizure, so she disagrees with the Schizophrenia diagnosis. Patient reports suicide attempt 3 days ago was related to her mother, who is a trigger. Patient states she has been placed in an inpatient psychiatric facility 40 times throughout her life. Patient states that her mom would send her inpatient as a way to deal with "normal teenage stuff." Patient states her only involuntary commitment was her recent placement at [facility]. Patient reports father and sister are source of support. Patient identified sister as her collaborator in care. 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 Clinician spoke with Marta at [facility] who verified patient completed treatment and the IVC was rescinded. Patient is alert and oriented to person, place, time and circumstance. Mood is normal with congruent affect. Patient denies suicidal and homicidal ideations. Delusions are absent and behavior is congruent with an intact reality based presentation (i.e., organized and linear through processes). There is no observed behavior that suggests patient is responding to internal stimuli. Patient is able to engage in organized, rational thought processes. Patient is able to express needs and wants in a logical manner. Patient denies current auditory and visual hallucinations. Eye contact is appropriate. Conversational speech is within normal rate, tone, and prosody. Intellectual ability appears to be within average range. Attention and concentration are good. Insight, judgment and impulse control are currently poor. Impression/Plan: Patient is cleared from acute psychiatric services. Patient denies suicidal and homicidal ideations. There is no observed behavior that suggests patient is responding to internal stimuli. Patient engaged in organized, rational, linear thought processes and was able to express needs and wants in a logical manner. Patient came to ED via [facility] after experiencing 3 seizures in a 24-hour period. Patient is linked with and has an appointment on 04/28/2019 with [facility] for mediation management and mental health services, and has telemental health with [facility] until her appointment with [facility]. Patient's sister, Lakeisha, has agreed to be her collaborator in care and be responsible for medication management and administration, observe for emotional distress, facilitate mental health appointments, remove hazardous items from the home such as sharps and weapons. Plan is for patient to follow up with [facility] until her appointment on 04/28/2019 with [facility]. Dr. Sousa was consulted on the care and management of this patient; attending physician is in agreement with recommendations and disposition.
--- NOTE | 2019-04-24 11:24 | ER Document Report ---
Doctor's Note Notes: 04/24/19 11:23 The patient was cleared following treatment at [place] facility and they reported she does not need to return. The patient claims that she was having seizures because of the Depakote that she was put on. She also reports that her seizures were controlled with the Keppra and she has plenty of that at home. She will be discharged home to resume her previous medication regimen and follow-up with her primary care and her psychiatric providers.
[2019-04-24 11:49] VITALS: BP 150/78
== END 2019-04-24 11:47 | disposition home or self-care (01) ==
LOC: ER 23:49
DX: G40.909 Epilepsy, unspecified, not intractable, without status epilepticus (principal); R00.0 Tachycardia, unspecified; F43.10 Post-traumatic stress disorder, unspecified; F32.9 Major depressive disorder, single episode, unspecified; T50.912D Poisoning by multiple unspecified drugs, medicaments and biological substances, intentional self-harm, subsequent encounter; X83.8XXD Intentional self-harm by other specified means, subsequent encounter
CPT/HCPCS: 93005; 36415; 87086; 80177; 83735; 84703; 85025; 80053; 81001; 80307; 85379; 71045; 70450; 93010; J3490; J7030; J1953; 96361; 96374; 99285

== ENCOUNTER → 2019-05-02 | Outpatient (CLI) | payer MEDICAID ==
--- NOTE | 2019-05-02 22:39 | EKG REPORT ---
SEVERITY:- NORMAL ECG - SINUS RHYTHM : Confirmed by: Claudia Quintanilla 02-May-2019 22:38:40
== END ==
LOC: OD 07:30
PROVIDERS: ATTEND Physician Assistant
DX: F25.1 Schizoaffective disorder, depressive type (principal); Z79.899 Other long term (current) drug therapy
CPT/HCPCS: 93005; 93010

== ENCOUNTER → 2019-05-07 | Outpatient (CLI) | payer MEDICAID ==
[2019-05-07 15:57] LABS: ALKALINE PHOSPHATASE 122 U/L (38-126); ANION GAP 10 (5-19); ASPARTATE AMINO TRANSFERASE 20 U/L (14-36); BILIRUBIN,DIRECT 0.3 mg/dL (0.0-0.4); BILIRUBIN,TOTAL 0.3 mg/dL (0.2-1.3); BLOOD UREA NITROGEN 12 mg/dL (7-20); CALCIUM 8.8 mg/dL (8.4-10.2); CARBON DIOXIDE 24 mmol/L (22-30); CHLORIDE 106 mmol/L (98-107); GLUCOSE 89 mg/dL (75-110); POTASSIUM 4.1 mmol/L (3.6-5.0); TOTAL PROTEIN 7.6 g/dL (6.3-8.2)
== END ==
LOC: OD 14:51
PROVIDERS: ATTEND Nurse Practitioner Family
DX: R00.0 Tachycardia, unspecified (principal)
CPT/HCPCS: 36415; 80053